=== PATIENT | male | born 1940 | race Caucasian/White ===

== ENCOUNTER 2021-12-07 00:59 | Emergency (ER) | payer OTHER, SELFPAY ==
[~2021-12-07] VITALS: Ht 165.1 cm; Wt 63.5 kg
[2021-12-07 01:05] VITALS: BP_SYST 112
[2021-12-07] MEDS ORDERED: IPRATROPIUM BROM 0.5 MG/2.5 ML VIAL.NEB (ATROVENT) INH ONE (01:15)
[2021-12-07] MEDS ORDERED: DEXAMETHASONE SOD PHOSPHATE 10 MG/ML VIAL IVP ONE (01:15)
[2021-12-07] MEDS ORDERED: ALBUTEROL SULFATE 0.083% 2.5 MG/3 ML VIAL.NEB INH ONE (01:15)
[2021-12-07] MEDS ORDERED: cefTRIAXone 1 GM in D5W 50 ML IV ONE (02:00)
[2021-12-07] MEDS ORDERED: AZITHROMYCIN 500 MG in NS 250 ML IV ONE (02:00)
[2021-12-07 02:05] LABS: ANION GAP 13 (5-15); CHLORIDE 103 mmol/L (98-107); GLUCOSE 128 mg/dL (70-99); POTASSIUM 3.6 mmol/L (3.5-5.1); SODIUM SERUM 142 mmol/L (136-145); UREA NITROGEN, BLOOD 76 mg/dL (8-21)
[2021-12-07 02:13] LABS: ALANINE AMINOTRANSFERASE 14 U/L (12-78); ALBUMIN 2.4 g/dL (3.4-4.8); ASPARTATE AMINOTRANSFERASE 18 U/L (10-37); TOTAL BILIRUBIN 0.4 mg/dL (0.0-1.0)
[2021-12-07] MEDS ORDERED: cefTRIAXone 1 GM VIAL ONE (02:17)
[2021-12-07] MEDS ORDERED: AZITHROMYCIN 500 MG/VIAL (ZITHROMAX) IV ONE (02:19)
[2021-12-07 02:20] LABS: CREATININE 8.19 mg/dL (0.55-1.30)
[2021-12-07 02:25] LABS: BASOPHILS % (AUTO) 0.2 % (0.0-2.0); EOSINOPHILS % (AUTO) 0.9 % (0.0-4.0); HEMATOCRIT 27.3 % (36-54); HEMOGLOBIN 8.8 g/dL (14.0-18.0); LYMPHOCYTES # (AUTO) 1.1 K/uL (1.0-5.5); LYMPHOCYTES % (AUTO) 22.5 % (20.5-51.5); MEAN CORPUSCULAR HEMOGLOBIN 30 pg (27-31); MEAN CORPUSCULAR HGB CONC 32 % (32-36); MEAN CORPUSCULAR VOLUME 94 fL (79.0-98.0); MONOCYTES # (AUTO) 0.8 K/uL (0.0-1.0); MONOCYTES % (AUTO) 15.7 % (1.7-9.3); NEUTROPHILS % (AUTO) 60.7 % (40.0-70.0); PLATELET COUNT (AUTO) 264 K/uL (130-430); RED CELL DISTRIBUTION WIDTH 21.8 % (9.0-15.0)
--- NOTE | 2021-12-07 03:15 | NUR ---
PT REFUSED [facility] COVID SWAB
--- NOTE | 2021-12-07 03:16 | NUR ---
Pt Placed in ED room 5 Pt BIBA C/O SOB HX COPD, HTN,ESRD,Anemia Pt medicated All other mneeds met at this time
--- NOTE | 2021-12-07 03:23 | NUR ---
Pt refused Bipap
--- NOTE | 2021-12-07 03:24 | NUR ---
Pt states he wants to go home explained to pt the risk of refusing care Pt insists he does not want to be admitted
--- NOTE | 2021-12-07 03:36 | NUR ---
Called daughter Maren x2 No answer
[2021-12-07 05:03] VITALS: BP_SYST 135
--- NOTE | 2021-12-07 05:04 | NUR ---
Pt DC per MD's order DC instructions and medications given to pt Pt verbalized understandings AOX4 VSS NAD at this time Pt [facility]
== END 2021-12-07 04:57 | disposition home or self-care (01) ==
LOC: SED 00:59
DX: J44.1 Chronic obstructive pulmonary disease with (acute) exacerbation (principal); I12.0 Hypertensive chronic kidney disease with stage 5 chronic kidney disease or end stage renal disease; N18.6 End stage renal disease; Z87.891 Personal history of nicotine dependence
CPT/HCPCS: 36415; 71045; 80053; 83880; 84484; 85025; 93005; 94640; 96365; 96375; 99284; J0456; J0696; J1100; J7613; 96374